=== PATIENT | female | born 1950 | race African-American/Black ===

== ENCOUNTER 2016-12-03 10:24 | Emergency (ER) | payer OTHER ==
[~2016-12-03] VITALS: Ht 170.2 cm; Wt 136.1 kg
[~2016-12-03 10:24] MED LIST: CARISOPRODOL350 MG PO; DILTIAZEM 24HR240 MG PO; HYDROMORPHONE HY2 MG PO; IBU800 MG PO; OMEPRAZOLE40 MG PO
--- NOTE | 2016-12-03 10:28 | ED UPPER/LOWER EXTREMITY COMPL ---
History of Present Illness General Chief Complaint: Lower Extremity Problems Stated Complaint: SENT BY [facility] FOR RT KNEE XRAY AND DOPPLER Source: patient Exam Limitations: no limitations Vital Signs & Intake/Output Vital Signs & Intake/Output Vital Signs Date Time Temp Pulse Resp B/P Pulse O2 O2 Flow FiO2 Ox Delivery Rate 12/03 1029 98.0 84 18 182/78 98 Room Air Allergies Coded Allergies: povidone-iodine (From BETADINE) (Mild, ITCHY 12/03/16) soap (From BETADINE) (Mild, ITCHY 12/03/16) RICKEY Inhibitors (UNKNOWN 12/03/16) acetaminophen (From VICODIN) (ITCHING 12/03/16) hydrocodone (From VICODIN) (ITCHING 12/03/16) metoprolol (SHORTNESS OF BREATH 12/03/16) Triage Nurses Notes Reviewed? 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 Patient denies any shortness of breath chest pain cough hemoptysis history of DVT or PE. (RICHARD ORANTES) Reconcile Medications Diltiazem HCl (Diltiazem 24HR ER) 240 MG CAP.ER.24H 1 CAP PO DAILY HEART ( Reported) Spironolactone 50 MG TABLET 1 TAB PO DAILY WATER PILL (Reported) Tylenol With Codeine (Tylenol With Codeine #3 Tablet) 300 MG-30 MG TABLET 1 TAB PO BIDP PRN PAIN (LYNN SANON,GREGG) Past History Travel History Traveled to [place] past 21 day No Medical History Any Pertinent Medical History? see below for history Cardiovascular: hypertension Surgical History Surgical History: non-contributory Psychosocial History What is your primary language Czech Family History Hx Contributory? No (RICHARD ORANTES) Review of Systems Review of Systems Constitutional: Reports: no symptoms. EENTM: Reports: no symptoms. Respiratory: Reports: no symptoms. Cardiovascular: Reports: see HPI, peripheral edema. Gastrointestinal/Abdominal: Reports: no symptoms. Genitourinary: Reports: no symptoms. Musculoskeletal: Reports: see HPI, joint pain. Skin: Reports: no symptoms. Neurological/Psychological: Reports: no symptoms. Hematologic/Endocrine: Reports: no symptoms. Immunological: Reports: no symptoms. All Other Systems: Reviewed and Negative (STEPH BRONSON,RICHARD) Physical Exam Physical Exam General Appearance: no apparent distress, obese Neurologic/Tendon: normal sensation, normal motor functions, normal tendon functions, responds to pain, no evidence tendon injury Skin: intact, normal color, warm/dry Comments: HEENT: Normal EENT exam, Neck: Supple, no lymphadenopathy, normal range of motion without pain or tenderness Back: Nontender, no CVA tenderness. Cardiovascular: Regular rate and rhythms no murmurs rubs or gallops, normal JVP Respiratory: Chest nontender. No respiratory distress.breath sounds clear to auscultation bilaterally Abdomen: Soft, nontender nondistended, no appreciable organomegaly. Normal bowel sounds. No ascites Extremity: Right knee normal inspection full active range of motion medial joint line point tenderness negative valgus stress test negative varus stress test negative anterior drawer test negative posterior drawer test Right ankle normal inspection full active range of motion nontender Right lower extremity noted moderate point tenderness upon gastrocnemius palpation Pedal pulse +2 dermatomes intact Neuro: Alert oriented x3, motor sensory normal, Skin: No appreciable rash on exposed skin, skin is warm and dry. Psych: Mood and affect is normal, memory and judgment is normal. (STEPH BRONSON,RICHARD) Progress Differential Diagnosis: arterial insufficiency, CHF, compartment syndrome, contusion, dislocation, DVT, fracture, gout, septic arthritis, sprain, tendon injury Diagnostic Imaging: Viewed by Me: Radiology Read, Ultrasound. Radiology Impression: no acute abnormality, no fracture Comments: PATIENT: JANETT TAYLOR PRESENT AGE: 66 PATIENT ACCOUNT NO: [id number] : 48 LOCATION: [facility] ORDERING PHYSICIAN: RICHARD BRONSON SERVICE DATE: 12/03/16-1038 EXAM TYPE: US - US-UNILATERAL VENOUS DOPPLER EXAMINATION: US TRIPLEX LOWER EXTREMITY, RIGHT CLINICAL INFORMATION: Right leg swelling and pain COMPARISON: None TECHNIQUE: Color-flow triplex imaging with spectral analysis and compression Doppler were performed on the right lower extremity. FINDINGS: Respiratory variation, normal compression and augmented flow are noted throughout the lower extremity. The visualized common femoral vein, superficial femoral vein, profunda femoral vein, popliteal vein and midcalf peroneal and posterior tibial venous segments show no evidence of deep venous thrombosis. There is no Dumont's cyst. IMPRESSION: Normal triplex scan without evidence of deep venous thrombosis involving the right lower extremity. DICTATED BY: ROXY MAS MD PATIENT: JANETT TAYLOR PRESENT AGE: 66 PATIENT ACCOUNT NO: [id number] : 48 LOCATION: [facility] ORDERING PHYSICIAN: RICHARD BRONSON SERVICE DATE: 12/03/16 EXAM TYPE: RAD - XRY-KNEE COMPLETE RIGHT EXAMINATION: XR KNEE, RIGHT CLINICAL INFORMATION: Fall, medial knee pain. COMPARISON: MRI of the right knee dated 11/04/2014 TECHNIQUE: Four views of the right knee. FINDINGS: There is no evidence of acute fracture, dislocation, or significant joint effusion. There is near complete joint space loss within the medial compartment with subchondral sclerosis and marginal osteophyte formation. Moderate degenerative changes also present within the patellofemoral compartment. There is a well-corticated ossific density projecting over Hoffa's fat pad on the lateral view. Well-corticated ossific densities are seen in the medial and lateral soft tissues on the frontal view. There is a well-corticated ossific density along the superior pole of the patella, stable. IMPRESSION: Severe degenerative change in the medial compartment and moderate degenerative change of the patellofemoral compartment. No evidence of acute fracture, dislocation, or knee joint effusion. (RICHARD ORANTES) Plan of Care: Orders Procedure Date/time Status US-UNILATERAL VENOUS DOPPLER 12/03 1038 Active Patient currently is resting comfortable, no apparent distress, ultrasound ruled out DVT x-rays showed no fracture however degeneration was noted. Patient was strongly advised to follow up with orthopedic doctor. Patient had normal steady gait on discharge. (STEPH BRONSON,RICHARD) Departure Departure Disposition: HOME OR SELF CARE Condition: Stable Clinical Impression Primary Impression: Right knee pain Referrals: LOKESH SANON,LAURA Alvarez (PCP/Family) Additional Instructions: As discussed begin icing the area directly 20 minutes every 2 hours. Begin over -the-counter NSAIDs such as ibuprofen for pain and inflammation. Begin the prescription Tylenol with Codeine for breakthrough pain relief. On Tuesday follow-up with your established orthopedic doctor. If symptoms worsen return to emergency room. Prescription is waiting at [facility] pharmacy Follow-up with occupational medicine on Tuesday Departure Forms: Customer Survey General Discharge Information Prescriptions: Current Visit Scripts Tylenol With Codeine (Tylenol With Codeine #3 Tablet) 1 TAB PO BIDP PRN PAIN #6 TAB (RICHARD ORANTES) PA/CONTINUOUS IMPROVEMENT ENGINEER Co-Sign Statement Statement: ED Attending supervision documentation- [X] I saw and evaluated the patient. I have also reviewed all the pertinent lab results and diagnostic results. I agree with the findings and the plan of care as documented in the PA's/CONTINUOUS IMPROVEMENT ENGINEER's documentation. [X] I have reviewed the ED Record and agree with the PA's/CONTINUOUS IMPROVEMENT ENGINEER's documentation. [] Additions or exceptions (if any) to the PAs/CONTINUOUS IMPROVEMENT ENGINEER's note and plan are summarized below: [] (LYNN SANON,GREGG)
[2016-12-03 10:29] VITALS: BP 182/78
--- NOTE | 2016-12-03 11:40 | RADIOLOGY REPORT ---
EXAMINATION: XR KNEE, RIGHT CLINICAL INFORMATION: Fall, medial knee pain. COMPARISON: MRI of the right knee dated 11/04/2014 TECHNIQUE: Four views of the right knee. FINDINGS: There is no evidence of acute fracture, dislocation, or significant joint effusion. There is near complete joint space loss within the medial compartment with subchondral sclerosis and marginal osteophyte formation. Moderate degenerative changes also present within the patellofemoral compartment. There is a well-corticated ossific density projecting over Hoffa's fat pad on the lateral view. Well-corticated ossific densities are seen in the medial and lateral soft tissues on the frontal view. There is a well-corticated ossific density along the superior pole of the patella, stable. IMPRESSION: Severe degenerative change in the medial compartment and moderate degenerative change of the patellofemoral compartment. No evidence of acute fracture, dislocation, or knee joint effusion.
--- NOTE | 2016-12-03 11:45 | ULTRASOUND REPORT ---
EXAMINATION: US TRIPLEX LOWER EXTREMITY, RIGHT CLINICAL INFORMATION: Right leg swelling and pain COMPARISON: None TECHNIQUE: Color-flow triplex imaging with spectral analysis and compression Doppler were performed on the right lower extremity. FINDINGS: Respiratory variation, normal compression and augmented flow are noted throughout the lower extremity. The visualized common femoral vein, superficial femoral vein, profunda femoral vein, popliteal vein and midcalf peroneal and posterior tibial venous segments show no evidence of deep venous thrombosis. There is no Dumont's cyst. IMPRESSION: Normal triplex scan without evidence of deep venous thrombosis involving the right lower extremity.
[2016-12-03] MEDS ORDERED: SPIRONOLACTONE50 M1 PO (11:47)
[2016-12-03] MEDS ORDERED: TYLENOL WITH C1 EACH PO (11:52)
== END 2016-12-03 12:08 ==
LOC: ERH 10:24
DX: M25.561 Pain in right knee (principal); X50.9XXA Other and unspecified overexertion or strenuous movements or postures, initial encounter; Y93.01 Activity, walking, marching and hiking; Y92.239 Unspecified place in hospital as the place of occurrence of the external cause
CPT/HCPCS: 73562-RT